=== PATIENT | female | born 1950 | race Caucasian/White ===

== ENCOUNTER → 2016-10-13 | Outpatient (CLI) | payer MEDICARE, OTHER ==
--- NOTE | 2016-10-13 13:02 | RADRPT ---
PROCEDURE: US Abdomen (right upper quadrant). CLINICAL INDICATION: Right upper quadrant abdomen pain. TECHNIQUE: Multiple real-time longitudinal and transverse images of the right upper quadrant of th e abdomen were acquired utilizing a curved array transducer. Images were reviewed on a high-resoluti on PACS workstation. COMPARISON: None FINDINGS: The liver is enlarged. Hepatic echogenicity is normal. Color Doppler and pulsed Doppler sonography demonstrate normal antegrade flow in the portal vein. There is no focal hepatic lesion. There is sludge in the gallbladder. There is no gallbladder wall thickening, gallstones, or fluid a round the gallbladder. The bile ducts are normal with the common bile duct measuring 6.0 mm in diameter. The visualized portions of the pancreas are unremarkable with obscuration of the tail of the pancrea s. No free fluid is present. The right kidney measures 11.5 cm. There is normal echogenicity of the right kidney. There is no perinephric fluid collection. No hydronephrosis, mass, or calculus is seen. IMPRESSION: 1. Hepatomegaly. 2. Sludge in the gallbladder. 3. Otherwise normal right upper quadrant abdomen ultrasound. RPTAT: QQ .Farhad Little MD, Date Time Electronically viewed and signed by .Farhad Little MD, on 10/13/2016 13:02 .R/
== END | disposition home or self-care (01) ==
LOC: U/S 08:16
PROVIDERS: ATTEND Internal Medicine
DX: R10.11 Right upper quadrant pain (principal)
CPT/HCPCS: 76705